=== PATIENT | female | born 1990 | race Two or more races ===

== ENCOUNTER 2019-01-31 09:34 | Emergency (ER) | payer MEDICAID ==
[~2019-01-31] VITALS: Ht 157.5 cm; Wt 60.0 kg
[2019-01-31 12:01] VITALS: BP 120/79
== END 2019-01-31 12:22 | disposition left against medical advice (07) ==
LOC: ER 09:34
DX: Z53.21 Procedure and treatment not carried out due to patient leaving prior to being seen by health care provider (principal)

== ENCOUNTER 2019-01-31 15:25 | Emergency (ER) | payer MEDICAID ==
[~2019-01-31] VITALS: Ht 157.5 cm; Wt 67.0 kg
[2019-01-31 18:33] VITALS: BP 116/78
== END 2019-01-31 20:41 | disposition left against medical advice (07) ==
LOC: ER 18:46
DX: Z53.21 Procedure and treatment not carried out due to patient leaving prior to being seen by health care provider (principal)

== ENCOUNTER 2020-04-29 02:28 | Emergency (ER) | payer MEDICAID ==
[~2020-04-29] VITALS: Ht 160 cm; Wt 63.5 kg
[2020-04-29] MEDS ORDERED: ONDANSETRON 4MG ODT PO ONE (03:30)
[2020-04-29] MEDS ORDERED: KETOROLAC 30MG/ML VIAL IM ONE (03:30)
[2020-04-29 04:42] LABS: CLARITY URINE CLEAR (CLEAR); COLOR URINE YELLOW (YELLOW); KETONES URINE TRACE (NEGATIVE); LEUKOCYTE ESTERASE URINE 1+ (NEGATIVE); NITRITE URINE POSITIVE (NEGATIVE); OCCULT BLOOD URINE 1+ (NEGATIVE); PH URINE 5.5 (4.5-8.0); PROTEIN URINE NEGATIVE (NEGATIVE); SPECIFIC GRAVITY URINE 1.025 (1.005-1.030)
[2020-04-29] MEDS ORDERED: CEPHALEXIN 250MG CAPSULE PO ONE (04:45)
[2020-04-29 04:51] LABS: *BARBITURATES SCREEN URINE NEGATIVE (NEGATIVE); CANNABINOID URINE SCREEN NEGATIVE (NEGATIVE); OPIATES URINE SCREEN NEGATIVE (NEGATIVE); PHENCYCLIDINE URINE SCREEN NEGATIVE (NEGATIVE)
[2020-04-29 04:52] LABS: *BENZODIAZEPINES SCREEN URINE NEGATIVE (NEGATIVE); *COCAINE SCREEN URINE NEGATIVE (NEGATIVE); METHADONE URINE SCREEN NEGATIVE (NEGATIVE)
[2020-04-29 05:06] LABS: *AMPHETAMINES SCREEN URINE PRESUMTIVE POSITIVE (NEGATIVE)
[2020-04-29 13:00] VITALS: BP 129/80
== END 2020-04-29 13:36 | disposition home or self-care (01) ==
LOC: ER 02:28
DX: N39.0 Urinary tract infection, site not specified (principal); F15.10 Other stimulant abuse, uncomplicated; Z98.890 Other specified postprocedural states
CPT/HCPCS: 80305; 81003; 81025; 87086; 96372; 99283; J1885; Q0162

== ENCOUNTER 2020-04-30 12:02 | Emergency (ER) | payer MEDICAID ==
[~2020-04-30] VITALS: Ht 162.6 cm; Wt 68.0 kg
[2020-04-30] MEDS ORDERED: KETOROLAC 30MG/ML VIAL IM ONE (14:30)
[2020-04-30 17:48] VITALS: BP 121/87
== END 2020-04-30 17:48 | disposition home or self-care (01) ==
LOC: ER 12:02
DX: S02.2XXA Fracture of nasal bones, initial encounter for closed fracture (principal); F31.9 Bipolar disorder, unspecified; Z98.890 Other specified postprocedural states; Y04.0XXA Assault by unarmed brawl or fight, initial encounter; Y93.89 Activity, other specified; Y92.512 Supermarket, store or market as the place of occurrence of the external cause
CPT/HCPCS: 70486; 81025; 96372; 99284; J1885